=== PATIENT | male | born 1970 | race Caucasian/White ===

== ENCOUNTER → 2016-12-13 | Outpatient (CLI) | payer OTHER ==
[~2016-12-13] MED LIST: AZOR 10/40 M1 TABLET PO; BYSTOLIC10 MG PO; CIPRO500 MG PO; FISH OIL 1,0001 EACH PO; FLAGYL500 MG PO; HYDROCHLOROTHIA25 MG PO; K-DUR20 MEQ PO; MAGNESIUM OXID500 MG PO; MILK THISTLE 11 EACH PO; POTASSIUM PO; RANITIDINE HCL150 M1 PO; TRIBENZOR 40-11 EAC1 PO; URSODIOL300 MG PO; VITAMIN D32000 UNI1 PO; VITAMIN E400 UNIT PO
== END | disposition home or self-care (01) ==
LOC: AMB 11:50
DX: Z45.2 Encounter for adjustment and management of vascular access device (principal); I87.8 Other specified disorders of veins; L91.8 Other hypertrophic disorders of the skin; Z85.72 Personal history of non-Hodgkin lymphomas

== ENCOUNTER → 2017-01-17 | Outpatient (CLI) | payer OTHER | END | disposition home or self-care (01) | LOC: NUC 09:43 | DX: K80.20 Calculus of gallbladder without cholecystitis without obstruction (principal) | CPT/HCPCS: 78227; A9537; J2805 ==